=== PATIENT | male | born 1970 | race Caucasian/White ===

== ENCOUNTER 2017-07-08 14:50 | Emergency (ER) | payer SELFPAY ==
[~2017-07-08] VITALS: Ht 175.3 cm; Wt 88.9 kg
[2017-07-08 14:53] VITALS: BP 124/68
== END 2017-07-08 16:15 | disposition home or self-care (01) ==
LOC: ER 14:51
DX: M25.561 Pain in right knee (principal)
CPT/HCPCS: A4606; Z7502; Z7610